=== PATIENT | female | born 1955 ===

== ENCOUNTER 2021-10-16 12:55 | Inpatient (IN) | payer BC ==
[2021-10-16] MEDS ORDERED: Lactated Ringers 1,000 ML IV ONE (13:46)
[2021-10-16] MEDS ORDERED: Morphine 4 MG/ML VIAL IVPUSH ONE (13:46)
[2021-10-16 15:24] LABS: BLOOD UREA NITROGEN,BUN 25 mg/dL (7.0-18.0); CARBON DIOXIDE,CO2 25.7 mmol/L (21.0-32.0); CHLORIDE,CL 103 mmol/L (98-107); GLUCOSE RANDOM 106 mg/dL (74-106); POTASSIUM,K 4.9 mmol/L (3.5-5.1); SODIUM,NA 138 mmol/L (136-145)
[2021-10-16] MEDS ORDERED: Iopamidol 755 MG/ML 500 ML Multipack Bottle IVPUSH STA (16:09)
--- NOTE | 2021-10-16 16:53 | CT ---
INDICATION: Diarrhea. Blood in the stool. Evaluate for diverticulitis. COMPARISON: None available TECHNIQUE: CT examination of the abdomen and pelvis was performed with the uneventful intravenous administration of 100 cc of Isovue 370 while 3 mm thick axial sections were obtained from the lung bases through the pubic symphysis. Oral contrast was not administered. Please note that all CT scans at this facility use dose modulation, iterative reconstruction, and/or weight-based dosing when appropriate to reduce radiation dose to as low as reasonably achievable. FINDINGS: In the abdomen, the liver, spleen, pancreas, and adrenals are normal in appearance. Parapelvic cysts are seen in both kidneys, larger and more numerous on the left than the right. Cortical cysts are also seen in both kidneys, the largest cyst in the upper pole of the left kidney measuring 4.5 centimeters in diameter. There is also mild nonobstructive left nephrolithiasis with 3 calculi present in the left kidney. The largest calculus is in the lower interpolar region measuring 6 millimeters in diameter. There is no sign of nephrolithiasis on the right. There is moderate cholelithiasis, with numerous low-density calculi in the superior gallbladder fundus. There is no sign of gallbladder wall thickening or pericholecystic fluid. The abdominal aorta is normal in caliber with no sign of dilatation. There is no sign of retroperitoneal mass or adenopathy. There is a small hiatal hernia. The rest of the stomach, loops of small bowel, and colon in the abdomen are otherwise normal in appearance. In the pelvis, the appendix is normal in appearance with no sign of inflammatory process. There is severe sigmoid diverticulosis without evidence of diverticulitis. There is mild thickening of the mucosa of the sigmoid colon suggesting nonspecific colitis. The loops of small bowel n the pelvis are normal in appearance. The uterus and adnexal regions are normal in appearance. The urinary bladder is normal in appearance. There is no sign of pelvic or inguinal mass or adenopathy. There is no sign of free air or free fluid in the abdomen or pelvis. There are bilateral, confluent, moderately dense and moderately sized peripheral infiltrates in the posterior lower lobes bilaterally, slightly more prominent on the left, typical of moderate COVID-19 pneumonia. A calcified granuloma is also seen in the posterior right lung base. The osseous structures are normal in appearance for the patient`s age. IMPRESSION: CT of the pelvis shows thickening of the wall of the sigmoid colon suggesting nonspecific colitis. While there is severe diverticulosis of the sigmoid colon, no inflammatory process is seen around the colon to suggest diverticulitis. No sign of any diverticular abscess. CT of the abdomen shows mild nonobstructive left nephrolithiasis. Parapelvic cysts and cortical cysts in both kidneys, larger and more numerous on the left than the right. For moderate cholelithiasis with no sign of acute cholecystitis. Findings of moderate COVID-19 pneumonia. Please note that all CT scans at this facility use dose modulation, iterative reconstruction, and/or weight-based dosing when appropriate to reduce radiation dose to as low as reasonably achievable. Dictated by Farhad Barrett MD @ 10/16/2021 4:51:49 PM (Electronically Signed)
--- NOTE | 2021-10-16 17:33 | EDM.PDOC ---
ED HPI GENERAL MEDICAL PROBLEM - General Chief Complaint: General Stated Complaint: DIARRHEA Time Seen by Provider: 10/16/21 13:33 - History of Present Illness INITIAL COMMENTS - FREE TEXT/NARRATIVE: CHIEF COMPLAINT(S): Diarrhea and abdominal pain HISTORY OF PRESENT ILLNESS: This is a 66-year-old woman without any significant past medical history who was recently diagnosed with COVID-19 who comes to the emergency department with a chief complaint of diarrhea and abdominal pain. The patient states that she has been experiencing a cough which is nonproductive however she is in the emergency department because she is having diarrhea which is explosive. She states that she is concerned that she may be having an episode of diverticulitis. She states that her symptoms started at the the time she was diagnosed with COVID-19 which was reported as October 10, 2021. She denies any vomiting or nausea but states that she does not feel like she is able to keep enough hydration. In addition she has been experiencing some dysuria and a strong odor. She describes her pain as achy and rates it 4-5 out of 10 without any radiation. There are no aggravating or relieving factors. Symptom onset was 10/10/2021. She states that she did not get the vaccine and has not received the monoclonal antibody. She denies any chest pain, shortness of breath . REVIEW OF SYSTEMS: Constitutional: Denies fever, chills. Eyes: Denies eye pain Ears, Nose, Mouth, & Throat: Denies earache Cardiovascular: Denies chest pain Respiratory: Denies shortness of breath Gastrointestinal: Positive for abdominal pain and diarrhea. Denies nausea, vomiting hematochezia, melena, hematemesis, bilious emesis Genitourinary: Positive for dysuria and malodorous urine. Denies hematuria skin:Denies a rash MSK: Denies joint pain Neurological: Denies blurred vision Psychiatric: Denies depression PAST MEDICAL HISTORY: As per history of present illness and as reviewed below otherwise noncontributory. SURGICAL HISTORY: As per history of present illness and as reviewed below otherwise noncontributory. SOCIAL HISTORY: As per history of present illness and as reviewed below otherwise noncontributory. FAMILY HISTORY: As per history of present illness and as reviewed below otherwise noncontributory. EXAMINATION OF ORGAN SYSTEMS/BODY AREAS: Constitutional: Blood pressure is 131/79, heart rate 86, respiratory rate 20 with an oxygen saturation of 87% on room air. Temperature 36.0 General: Middle-aged woman who does not appear to be in acute distress. Psychiatric: Appropriate mood and affect. Eyes: No scleral icterus or conjunctival erythema ENMT: Moist mucous membranes. No pharyngeal erythema Cardiovascular: Regular, rate, and rhythm. No gallops, murmurs, or rubs. Bilateral upper extremity pulses symmetric and intact. No peripheral edema. No JVD. Respiratory: Lungs clear to auscultation bilaterally. No wheezes, rales, or rhonchi. The patient is mildly tachypneic but is speaking in full sentences Gastrointestinal: Soft, nondistended, no rebound or guarding. Tenderness to palpation in the lower quadrants bilaterally and suprapubically. Normoactive bowel sounds Genitourinary: Mild suprapubic tenderness. No CVA tenderness Musculoskeletal: Normal range of motion. Skin: No lesions or abrasions. Neurological: Alert, GCS 15 MEDICAL DECISION MAKING AND COURSE IN THE ED WITH INTERPRETATION/REVIEW OF DIAGNOSTIC STUDIES: This is a 66-year-old woman with a recent diagnosis of COVID-19 who comes to the emergency department with diarrhea and abdominal pain who is hypoxic on room air. At this time cardiac monitoring did reveal sinus rhythm and pulse oximetry with good waveform on 2 L nasal cannula was 92 to 96%. At this time we did obtain a screening EKG which is unremarkable. Given the patient's abdominal pain obtain a CT abdomen pelvis for further evaluation. Will obtain CBC, CMP and a urinalysis given the dysuria. We will provide the patient with 1 L of lactated Ringer's bolus, 4 mg of morphine for pain and 4 mg of Zofran for nausea. Laboratory: CBC is unremarkable. INR is normal. CMP reveals acute kidney injury with a BUN of 25 and a creatinine of 1.2. AST is mildly elevated at 70. Urinalysis is negative for any infection and did reveal microscopic hematuria. DDx: Cystitis, diverticulitis, colitis The radiological images were viewed by myself along with reading the report from the radiologist. CT abdomen pelvis with contrast reveals evidence of moderate COVID-19 pneumonia, colitis without any evidence of diverticulitis. Otherwise no acute abdominal process. On reevaluation the patient was continuing to require supplemental oxygenation. At this time I did discuss admission with the patient. She was amenable to this plan. I contacted Dr. Hendricks who accepted the patient for admission. We will start the patient on remdesivir and dexamethasone. DISPOSITION: The patient was admitted to the hospital in stable condition CONDITION: Fair PROCEDURES: Cardiac monitoring interpretation, pulse oximetry interpretation FINAL IMPRESSION(S)/DIAGNOSES: 1. Acute hypoxic respiratory failure secondary to COVID-19 pneumonia 2. Acute diarrhea secondary to colitis 3. Acute kidney injury likely secondary to #2 Aj Duke M.D. - Related Data Allergies Allergy/AdvReac Type Severity Reaction Status Date / Time aspirin Allergy Hives Verified 10/16/21 13:33 codeine Allergy Vomiting Verified 10/16/21 13:33 Penicillins Allergy unknown Verified 10/16/21 13:33 Home Meds: Home Meds . [No Known Home Meds] 10/16/21 [History] Past Medical History - Past Health History Medical/Surgical History: Denies Medical/Surgical History DIETICIAN History: Reports: Other (See Below) Other DIETICIAN History: Tube tied Musculoskeletal History: Reports: None - Infectious Disease History Infectious Disease History: Reports: Chicken Pox, Measles, Mumps - Past Surgical History Other Respiratory Surgeries/Procedures: Diagnose with covid 10/02/21 Social & Family History - Family History Family Medical History: No Pertinent Family History - Caffeine Use Caffeine Use: Reports: Coffee, Soda - Recreational Drug Use Recreational Drug Use: No ED ROS GENERAL - Review of Systems Review Of Systems: See Below ED EXAM, GENERAL - Physical Exam Exam: See Below Course - Vital Signs Last Recorded V/S: Last Vital Signs Temp 36.0 C L 10/16/21 13:19 Pulse 92 10/16/21 19:12 Resp 18 10/16/21 16:43 BP 124/79 10/16/21 19:12 Pulse Ox 92 L 10/16/21 19:12 - Orders/Labs/Meds Labs: Laboratory Tests 10/16/21 10/16/21 10/16/21 Range/Units 14:00 14:48 14:48 WBC 6.54 (4.0-11.0) K/uL RBC 5.50 (4.30-5.90) M/uL Hgb 16.7 H (12.0-16.0) g/dL Hct 48.6 H (36.0-46.0) % MCV 88.4 (80.0-98.0) fL MCH 30.4 (27.0-32.0) pg MCHC 34.4 (31.0-37.0) g/dL RDW Std Deviation 45.1 (28.0-62.0) fl RDW Coeff of Isadora 14 (11.0-15.0) % Plt Count 185 (150-400) K/uL MPV 12.10 H (7.40-12.00) fL Neut % (Auto) 80.3 H (48.0-80.0) % Lymph % (Auto) 7.8 L (16.0-40.0) % Lares % (Auto) 11.9 (0.0-15.0) % Eos % (Auto) 0.0 (0.0-7.0) % Baso % (Auto) 0.0 (0.0-1.5) % Neut # (Auto) 5.3 (1.4-5.7) K/uL Lymph # (Auto) 0.5 L (0.6-2.4) K/uL [place] # (Auto) 0.8 (0.0-0.8) K/uL Eos # (Auto) 0.0 (0.0-0.7) K/uL Baso # (Auto) 0.0 (0.0-0.1) K/uL Nucleated RBC % 0.0 /100WBC Nucleated RBCs # 0 K/uL INR 1.08 Sodium 138 (136-145) mmol/L Potassium 4.9 (3.5-5.1) mmol/L Chloride 103 (98-107) mmol/L Carbon Dioxide 25.7 (21.0-32.0) mmol/L BUN 25 H (7.0-18.0) mg/dL Creatinine 1.2 H (0.6-1.0) mg/dL Est Cr Clr Drug Dosing TNP Estimated GFR (MDRD) 45.1 ml/min Glucose 106 (74-106) mg/dL Calcium 8.5 (8.5-10.1) mg/dL Total Bilirubin 0.5 (0.2-1.0) mg/dL AST 70 H (15-37) IU/L ALT 58 (14-63) IU/L Alkaline Phosphatase 49 (46-116) U/L Total Protein 6.9 (6.4-8.2) g/dL Albumin 2.6 L (3.4-5.0) g/dL Globulin 4.3 H (2.6-4.0) g/dL Albumin/Globulin Ratio 0.6 L (0.9-1.6) Urine Color Urine Appearance Urine pH (5.0-8.0) Ur Specific [place] (1.001-1.035) Urine Protein (NEGATIVE) mg/dL Urine Glucose (UA) (NEGATIVE) mg/dL Urine Ketones (NEGATIVE) mg/dL Urine Occult Blood (NEGATIVE) Urine Nitrite (NEGATIVE) Urine Bilirubin (NEGATIVE) Urine Urobilinogen (<2.0) EU/dL Ur Leukocyte Esterase (NEGATIVE) U Hyaline Cast (Auto) (0-2/LPF) Urine RBC (0-2/HPF) Urine WBC (0-5/HPF) Ur Epithelial Cells (NONE-FEW) Urine Bacteria (NEGATIVE) Fine Granular Casts (NEGATIVE) Coarse Granular Casts (NEGATIVE) 10/16/ Range/Units 15:15 WBC (4.0-11.0) K/uL RBC (4.30-5.90) M/uL Hgb (12.0-16.0) g/dL Hct (36.0-46.0) % MCV (80.0-98.0) fL MCH (27.0-32.0) pg MCHC (31.0-37.0) g/dL RDW Std Deviation (28.0-62.0) fl RDW Coeff of Isadora (11.0-15.0) % Plt Count (150-400) K/uL MPV (7.40-12.00) fL Neut % (Auto) (48.0-80.0) % Lymph % (Auto) (16.0-40.0) % Lares % (Auto) (0.0-15.0) % Eos % (Auto) (0.0-7.0) % Baso % (Auto) (0.0-1.5) % Neut # (Auto) (1.4-5.7) K/uL Lymph # (Auto) (0.6-2.4) K/uL [place] # (Auto) (0.0-0.8) K/uL Eos # (Auto) (0.0-0.7) K/uL Baso # (Auto) (0.0-0.1) K/uL Nucleated RBC % /100WBC Nucleated RBCs # K/uL INR Sodium (136-145) mmol/L Potassium (3.5-5.1) mmol/L Chloride (98-107) mmol/L Carbon Dioxide (21.0-32.0) mmol/L BUN (7.0-18.0) mg/dL Creatinine (0.6-1.0) mg/dL Est Cr Clr Drug Dosing Estimated GFR (MDRD) ml/min Glucose (74-106) mg/dL Calcium (8.5-10.1) mg/dL Total Bilirubin (0.2-1.0) mg/dL AST (15-37) IU/L ALT (14-63) IU/L Alkaline Phosphatase (46-116) U/L Total Protein (6.4-8.2) g/dL Albumin (3.4-5.0) g/dL Globulin (2.6-4.0) g/dL Albumin/Globulin Ratio (0.9-1.6) Urine Color YELLOW Urine Appearance SLT CLOUDY Urine pH 6.0 (5.0-8.0) Ur Specific [place] 1.025 (1.001-1.035) Urine Protein 100 H (NEGATIVE) mg/dL Urine Glucose (UA) NEGATIVE (NEGATIVE) mg/dL Urine Ketones NEGATIVE (NEGATIVE) mg/dL Urine Occult Blood SMALL H (NEGATIVE) Urine Nitrite NEGATIVE (NEGATIVE) Urine Bilirubin NEGATIVE (NEGATIVE) Urine Urobilinogen 0.2 (<2.0) EU/dL Ur Leukocyte Esterase NEGATIVE (NEGATIVE) U Hyaline Cast (Auto) 2-5 (0-2/LPF) Urine RBC 1-4 (0-2/HPF) Urine WBC 0-1 (0-5/HPF) Ur Epithelial Cells FEW (NONE-FEW) Urine Bacteria 2+ H (NEGATIVE) Fine Granular Casts 3-5 (NEGATIVE) Coarse Granular Casts 1-3 (NEGATIVE) Meds: Medications Discontinued Medications Generic Name Dose Route Start Last Admin Trade Name Freq PRN Reason Stop Dose Admin Dexamethasone 6 mg 10/16/21 17:52 10/16/21 18:22 Dexamethasone 4 Mg Tab PO 10/16/21 17:53 6 mg ONETIME ONE Administration Lactated Ringer's 1,000 mls @ 999 mls/hr 10/16/21 13:46 10/16/21 14:11 Ringers, Lactated IV 10/16/21 14:46 999 mls/hr .BOLUS ONE Administration Remdesivir 200 mg/ Sodium 250 mls @ 250 mls/hr 10/16/21 17:53 10/16/21 18:28 Chloride IV 10/16/21 17:54 250 mls/hr ONETIME ONE Administration Iopamidol 100 ml 10/16/21 16:09 10/16/21 16:10 Iopamidol 755 Mg/Ml 500 Ml Multipack Bottle IVPUSH 10/16/21 16:10 100 ml ONETIME STA Administration Morphine Sulfate 4 mg 10/16/21 13:46 10/16/21 14:12 Morphine 4 Mg/Ml Vial IVPUSH 10/16/21 13:47 4 mg ONETIME ONE Administration Ondansetron HCl 4 mg 10/16/21 18:27 10/16/21 18:30 Ondansetron 4 Mg/2 Ml Sdv IVPUSH 10/16/21 18:28 4 mg ONETIME ONE Administration Departure - Departure Time of Disposition: 17:32 Disposition: Admitted As Inpatient 67 Condition: Fair Clinical Impression: COVID-19, Diarrhea - Discharge Information *PRESCRIPTION DRUG MONITORING PROGRAM REVIEWED*: No *COPY OF PRESCRIPTION DRUG MONITORING REPORT IN PATIENT RICHARD: No Sepsis Event Note (ED) - Evaluation Sepsis Screening Result: No Definite Risk - Focused Exam Vital Signs: Vital Signs Temp Pulse Resp BP Pulse Ox 10/16/21 17:01 90 137/71 96 10/16/21 16:43 94 18 137/71 96 10/16/21 15:21 95 18 128/77 92 L 10/16/21 13:19 36.0 C L 86 20 131/79 87 L
[2021-10-16] MEDS ORDERED: Dexamethasone 4 MG Tab PO ONE (17:52)
[2021-10-16] MEDS ORDERED: REMDESIVIR 200 MG in Sodium Chloride 0.9% 250 ML IV ONE (17:53)
[2021-10-16] MEDS ORDERED: Ondansetron 4 MG/2 ML SDV IVPUSH ONE (18:27)
[2021-10-16] MEDS ORDERED: methylPREDNISolone Sodium Succinate 40 MG/1 ML SDV IVPUSH SCH (21:00)
--- NOTE | 2021-10-17 08:19 | PCM.HP.2 ---
H&P History of Present Illness - General Date of Service: 10/17/21 Admit Problem/Dx: Admission Diagnosis/Problem Admission Diagnosis/Problem Hypoxia - History of Present Illness Initial Comments - Free Text/Narative: 66-year-old female presents to the ER with diarrhea and abdominal pain. Patient was diagnosed with COVID-19 on 10/10/2021. Patient complains of cough nonproductive. Now has explosive diarrhea. Patient does endorse a history of diverticulitis. Denies bloody stools or BRBPR. Patient endorses myalgias. No nausea or vomiting. Patient complains of dysuria. Patient is not vaccinated. ER course: Patient is hypoxic and requires 3 L nasal cannula, saturating at 93%. EKG is normal sinus rhythm. CBC unremarkable. CMP reveals CHONG, BUN 25, CR 1.2. AST 70. Urinalysis negative. CT abdomen pelvis reveals moderate COVID-19 pneumonia, colitis, no evidence of diverticulitis. Patient admitted for COVID-19 pneumonia and colitis. - Related Data Allergies/Adverse Reactions: Allergies Allergy/AdvReac Type Severity Reaction Status Date / Time aspirin Allergy Hives Verified 10/16/21 13:33 codeine Allergy Vomiting Verified 10/16/21 13:33 Penicillins Allergy unknown Verified 10/16/21 13:33 Home Medications: Home Meds . 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 (See Below) Other OB/BYN History: Tube tied Musculoskeletal History: Reports: None - Infectious Disease History Infectious Disease History: Reports: Chicken Pox, Measles, Mumps - Past Surgical History Other Respiratory Surgeries/Procedures: Diagnose with covid 10/02/21 Social & Family History - Family History Family Medical History: No Pertinent Family History - Tobacco Use Tobacco Use Status *Q: Never Tobacco User Second Hand Smoke Exposure: No - Caffeine Use Caffeine Use: Reports: Coffee, Soda - Alcohol Use Days Per Week of Alcohol Use: 7 Number of Drinks Per Day: 1 Total Drinks Per Week: 7 - Recreational Drug Use Recreational Drug Use: No H&P Review of Systems - Review of Systems: Review Of Systems: See Below General: Reports: Fatigue. Denies: Fever Pulmonary: Reports: Shortness of Breath, Cough. Denies: Wheezing, Sputum Cardiovascular: Denies: Chest Pain, Palpitations Gastrointestinal: Reports: Abdominal Pain, Diarrhea. Denies: Black Stool, Bloody Stool Genitourinary: Reports: Dysuria Neurological: Denies: Confusion, Dizziness, Numbness, Paresthesia Exam - Exam Exam: See Below - Vital Signs Vital Signs: Last Vital Signs Temp 96.0 F L 10/17/21 04:00 Pulse 76 10/17/21 04:00 Resp 16 10/17/21 04:00 BP 106/73 10/17/21 04:00 Pulse Ox 97 10/17/21 04:00 Weight: 217 lb 2.485 oz - Exam Quality Assessment: Supplemental Oxygen General: Alert, Oriented, Cooperative HEENT: Conjunctiva Clear, EACs Clear Neck: Supple, Trachea Midline Lungs: Decreased Breath Sounds Cardiovascular: Regular Rate, Regular Rhythm GI/Abdominal Exam: Soft, Other (Mid abdominal and suprapubic tenderness. Negative rebound.) Back Exam: Normal Inspection Extremities: Normal Inspection Peripheral Pulses: 2+: Dorsalis Pedis (L), Dorsalis Pedis (R) Neuro Extensive - Mental Status: Alert, Oriented x3 - Patient Data Lab Results Last 24 hrs: Laboratory Results - last 24 hr 10/16/21 10/16/21 10/16/21 Range/Units 14:00 14:48 14:48 WBC 6.54 (4.0-11.0) K/uL RBC 5.50 (4.30-5.90) M/uL Hgb 16.7 H (12.0-16.0) g/dL Hct 48.6 H (36.0-46.0) % MCV 88.4 (80.0-98.0) fL MCH 30.4 (27.0-32.0) pg MCHC 34.4 (31.0-37.0) g/dL RDW Std Deviation 45.1 (28.0-62.0) fl RDW Coeff of Isadora 14 (11.0-15.0) % Plt Count 185 (150-400) K/uL MPV 12.10 H (7.40-12.00) fL Neut % (Auto) 80.3 H (48.0-80.0) % Lymph % (Auto) 7.8 L (16.0-40.0) % [place] % (Auto) 11.9 (0.0-15.0) % Eos % (Auto) 0.0 (0.0-7.0) % Baso % (Auto) 0.0 (0.0-1.5) % Neut # (Auto) 5.3 (1.4-5.7) K/uL Lymph # (Auto) 0.5 L (0.6-2.4) K/uL [place] # (Auto) 0.8 (0.0-0.8) K/uL Eos # (Auto) 0.0 (0.0-0.7) K/uL Baso # (Auto) 0.0 (0.0-0.1) K/uL Nucleated RBC % 0.0 /100WBC Nucleated RBCs # 0 K/uL INR 1.08 Sodium 138 (136-145) mmol/L Potassium 4.9 (3.5-5.1) mmol/L Chloride 103 (98-107) mmol/L Carbon Dioxide 25.7 (21.0-32.0) mmol/L BUN 25 H (7.0-18.0) mg/dL Creatinine 1.2 H (0.6-1.0) mg/dL Est Cr Clr Drug Dosing TNP Estimated GFR (MDRD) 45.1 ml/min Glucose 106 (74-106) mg/dL Calcium 8.5 (8.5-10.1) mg/dL Total Bilirubin 0.5 (0.2-1.0) mg/dL AST 70 H (15-37) IU/L ALT 58 (14-63) IU/L Alkaline Phosphatase 49 (46-116) U/L Total Protein 6.9 (6.4-8.2) g/dL Albumin 2.6 L (3.4-5.0) g/dL Globulin 4.3 H (2.6-4.0) g/dL Albumin/Globulin Ratio 0.6 L (0.9-1.6) Urine Color Urine Appearance Urine pH (5.0-8.0) Ur Specific [place] (1.001-1.035) Urine Protein (NEGATIVE) mg/dL Urine Glucose (UA) (NEGATIVE) mg/dL Urine Ketones (NEGATIVE) mg/dL Urine Occult Blood (NEGATIVE) Urine Nitrite (NEGATIVE) Urine Bilirubin (NEGATIVE) Urine Urobilinogen (<2.0) EU/dL Ur Leukocyte Esterase (NEGATIVE) U Hyaline Cast (Auto) (0-2/LPF) Urine RBC (0-2/HPF) Urine WBC (0-5/HPF) Ur Epithelial Cells (NONE-FEW) Urine Bacteria (NEGATIVE) Fine Granular Casts (NEGATIVE) Coarse Granular Casts (NEGATIVE) 10/16/21 Range/Units 15:15 WBC (4.0-11.0) K/uL RBC (4.30-5.90) M/uL Hgb (12.0-16.0) g/dL Hct (36.0-46.0) % MCV (80.0-98.0) fL MCH (27.0-32.0) pg MCHC (31.0-37.0) g/dL RDW Std Deviation (28.0-62.0) fl RDW Coeff of Isadora (11.0-15.0) % Plt Count (150-400) K/uL MPV (7.40-12.00) fL Neut % (Auto) (48.0-80.0) % Lymph % (Auto) (16.0-40.0) % [place] % (Auto) (0.0-15.0) % Eos % (Auto) (0.0-7.0) % Baso % (Auto) (0.0-1.5) % Neut # (Auto) (1.4-5.7) K/uL Lymph # (Auto) (0.6-2.4) K/uL [place] # (Auto) (0.0-0.8) K/uL Eos # (Auto) (0.0-0.7) K/uL Baso # (Auto) (0.0-0.1) K/uL Nucleated RBC % /100WBC Nucleated RBCs # K/uL INR Sodium (136-145) mmol/L Potassium (3.5-5.1) mmol/L Chloride (98-107) mmol/L Carbon Dioxide (21.0-32.0) mmol/L BUN (7.0-18.0) mg/dL Creatinine (0.6-1.0) mg/dL Est Cr Clr Drug Dosing Estimated GFR (MDRD) ml/min Glucose (74-106) mg/dL Calcium (8.5-10.1) mg/dL Total Bilirubin (0.2-1.0) mg/dL AST (15-37) IU/L ALT (14-63) IU/L Alkaline Phosphatase (46-116) U/L Total Protein (6.4-8.2) g/dL Albumin (3.4-5.0) g/dL Globulin (2.6-4.0) g/dL Albumin/Globulin Ratio (0.9-1.6) Urine Color YELLOW Urine Appearance SLT CLOUDY Urine pH 6.0 (5.0-8.0) Ur Specific [place] 1.025 (1.001-1.035) Urine Protein 100 H (NEGATIVE) mg/dL Urine Glucose (UA) NEGATIVE (NEGATIVE) mg/dL Urine Ketones NEGATIVE (NEGATIVE) mg/dL Urine Occult Blood SMALL H (NEGATIVE) Urine Nitrite NEGATIVE (NEGATIVE) Urine Bilirubin NEGATIVE (NEGATIVE) Urine Urobilinogen 0.2 (<2.0) EU/dL Ur Leukocyte Esterase NEGATIVE (NEGATIVE) U Hyaline Cast (Auto) 2-5 (0-2/LPF) Urine RBC 1-4 (0-2/HPF) Urine WBC 0-1 (0-5/HPF) Ur Epithelial Cells FEW (NONE-FEW) Urine Bacteria 2+ H (NEGATIVE) Fine Granular Casts 3-5 (NEGATIVE) Coarse Granular Casts 1-3 (NEGATIVE) Result Diagrams: 10/16/21 14:00 10/16/21 14:48 Sepsis Event Note - Evaluation Sepsis Screening Result: No Definite Risk - Focused Exam Vital Signs: Vital Signs Temp Pulse Resp BP BP Pulse Ox Pulse Ox 10/17/21 04:00 96.0 F L 76 16 106/73 97 10/17/21 00:55 96.2 F L 86 16 121/78 97 10/16/21 20:55 93 L Problem List Initiated/Reviewed/Updated: Yes Orders Last 24hrs: Active Orders 24 hr Category Date Time Status Admission Status [Patient Status] [ADT] Stat ADT 10/16/21 17:55 Active Antiembolic Devices [RC] PER UNIT ROUTINE Care 10/16/21 21:00 Active Oxygen Therapy [RC] PRN Care 10/16/21 20:55 Active Up ad Phyllis [RC] ASDIRECTED Care 10/16/21 20:55 Active VTE/DVT Education [RC] PER UNIT ROUTINE Care 10/16/21 20:55 Active Vital Signs [RC] Q4H Care 10/16/21 20:55 Active C DIFFICILE AG/TOXIN W/REFLEX [RM] Routine Lab 10/16/21 21:02 Ordered methylPREDNISolone Sod Succ [Solu-MEDROL] Med 10/16/21 21:00 Active 80 mg IVPUSH Q24H Sequential Compression Device [OM.PC] Per Unit Routine Oth 10/16/21 21:00 Ordered Resuscitation Status Routine Resus Stat 10/16/21 20:55 Ordered Medication Orders Methylprednisolone Sodium Succinate (Methylprednisolone Sodium Succinate 40 Mg/1 Ml Sdv) 80 mg IVPUSH Q24H JUDI Last Admin: 10/16/21 22:05 Dose: 80 mg Documented by: HERRERA Assessment/Plan Comment:: Covid pneumonia: Oxygen, wean as tolerated. Remdesivir. Colitis: Solu-Medrol 80 mg daily. C. difficile antigen testing.
[2021-10-17] MEDS ORDERED: Ondansetron 4 MG/2 ML SDV IVPUSH PRN (08:22)
[2021-10-17] MEDS: Vancomycin 125 MG Cap PO SCH ×3 (13:24→23:36)
--- NOTE | 2021-10-17 16:33 | PCM.PN ---
- General Info Date of Service: 10/17/21 Subjective Update: Pt's c diff antigen came back positive. She denies having any loose stools today. - Patient Data Vitals - Most Recent: Last Vital Signs Temp 95.8 F L 10/17/21 12:00 Pulse 79 10/17/21 12:00 Resp 16 10/17/21 12:00 BP 110/78 10/17/21 12:00 Pulse Ox 90 L 10/17/21 12:00 Weight - Most Recent: 217 lb 2.485 oz I&O - Last 24 Hours: Intake & Output 10/17/21 10/17/21 10/17/21 06:59 14:59 22:59 Intake Total 200 Output Total 800 Balance -600 Lab Results Last 24 Hours: Laboratory Results - last 24 hr 10/16/21 Range/Units 15:15 U Hyaline Cast (Auto) 2-5 (0-2/LPF) Urine RBC 1-4 (0-2/HPF) Urine WBC 0-1 (0-5/HPF) Ur Epithelial Cells FEW (NONE-FEW) Urine Bacteria 2+ H (NEGATIVE) Fine Granular Casts 3-5 (NEGATIVE) Coarse Granular Casts 1-3 (NEGATIVE) Deniz Results Last 24 Hours: Microbiology 10/17/21 10:25 C. difficile Antigen & Toxins A,B - Final Stool / Feces - Stool, Liquid Med Orders - Current: Current Medications Remdesivir 100 mg/ Sodium (Chloride) 100 mls @ 100 mls/hr IV Q24H [facility]I Stop: 10/20/21 18:59 Ondansetron HCl (Ondansetron 4 Mg/2 Ml Sdv) 4 mg IVPUSH Q6H PRN PRN Reason: Nausea/Vomiting Vancomycin HCl (Vancomycin 125 Mg Cap) 125 mg PO QID JUDI Last Admin: 10/17/21 13:24 Dose: 125 mg Documented by: Discontinued Medications Dexamethasone (Dexamethasone 4 Mg Tab) 6 mg PO ONETIME ONE Stop: 10/16/21 17:53 Last Admin: 10/16/21 18:22 Dose: 6 mg Documented by: Lactated Ringer's (Ringers, Lactated) 1,000 mls @ 999 mls/hr IV .BOLUS ONE Stop: 10/16/21 14:46 Last Admin: 10/16/21 14:11 Dose: 999 mls/hr Documented by: Remdesivir 200 mg/ Sodium (Chloride) 250 mls @ 250 mls/hr IV ONETIME ONE Stop: 10/16/21 17:54 Last Admin: 10/16/21 18:28 Dose: 250 mls/hr Documented by: Iopamidol (Iopamidol 755 Mg/Ml 500 Ml Multipack Bottle) 100 ml IVPUSH ONETIME STA Stop: 10/16/21 16:10 Last Admin: 10/16/21 16:10 Dose: 100 ml Documented by: Methylprednisolone Sodium Succinate (Methylprednisolone Sodium Succinate 40 Mg/1 Ml Sdv) 80 mg IVPUSH Q24H JUDI Last Admin: 10/16/21 22:05 Dose: 80 mg Documented by: Morphine Sulfate (Morphine 4 Mg/Ml Vial) 4 mg IVPUSH ONETIME ONE Stop: 10/16/21 13:47 Last Admin: 10/16/21 14:12 Dose: 4 mg Documented by: Ondansetron HCl (Ondansetron 4 Mg/2 Ml Sdv) 4 mg IVPUSH ONETIME ONE Stop: 10/16/21 18:28 Last Admin: 10/16/21 18:30 Dose: 4 mg Documented by: - Exam Physical Findings Comments:: General: Well developed middle aged female. In no distress CVS: S1S2 appreciated lungs: clear bilaterally pa: soft, non tender. bowel sounds present ext: no clubbing, cyanosis or edema neuro: gait is stable. Sensation is intact. Strength is symmetrical and equal bi laterally psych: stable mood and affect. - Patient Data Lab Results Last 24 hrs: Laboratory Results - last 24 hr 10/16/21 Range/Units 15:15 U Hyaline Cast (Auto) 2-5 (0-2/LPF) Urine RBC 1-4 (0-2/HPF) Urine WBC 0-1 (0-5/HPF) Ur Epithelial Cells FEW (NONE-FEW) Urine Bacteria 2+ H (NEGATIVE) Fine Granular Casts 3-5 (NEGATIVE) Coarse Granular Casts 1-3 (NEGATIVE) Result Diagrams: 10/16/21 14:00 10/16/21 14:48 Deniz Results Last 24 hrs: Microbiology 10/17/21 10:25 C. difficile Antigen & Toxins A,B - Final Stool / Feces - Stool, Liquid Sepsis Event Note - Evaluation Sepsis Screening Result: No Definite Risk - Focused Exam Vital Signs: Vital Signs Temp Pulse Resp BP Pulse Ox 10/17/21 12:00 95.8 F L 79 16 110/78 90 L 10/17/21 08:00 96.3 F L 78 16 119/69 94 L - Problem List & Annotations (1) C. difficile colitis SNOMED Code(s): 491085945 Code(s): A04.72 - ENTEROCOLITIS D/T CLOSTRIDIUM DIFFICILE, NOT SPCF RECUR Status: Acute Current Visit: Yes (2) COVID-19 virus infection SNOMED Code(s): 945081910 Code(s): U07.1 - COVID-19 Status: Acute Current Visit: Yes (3) Hypoxemia SNOMED Code(s): 033871410 Code(s): R09.02 - HYPOXEMIA Status: Acute Current Visit: Yes (4) Obesity SNOMED Code(s): 854211019, 810703174 Code(s): E66.9 - OBESITY, UNSPECIFIED Status: Acute Current Visit: Yes (5) Full code status SNOMED Code(s): 015165776 Code(s): Z78.9 - OTHER SPECIFIED HEALTH STATUS Status: Acute Current Visit: Yes (6) DVT prophylaxis SNOMED Code(s): 985025332, 357510391 Code(s): Z29.9 - ENCOUNTER FOR PROPHYLACTIC MEASURES, UNSPECIFIED Status: Acute Current Visit: Yes - Problem List Review Problem List Initiated/Reviewed/Updated: Yes - My Orders Last 24 Hours: My Active Orders 10/16/21 20:55 Oxygen Therapy [RC] PRN Up ad Phyllis [RC] ASDIRECTED VTE/DVT Education [RC] PER UNIT ROUTINE Vital Signs [RC] Q4H Resuscitation Status Routine 10/16/21 21:00 Antiembolic Devices [RC] PER UNIT ROUTINE Sequential Compression Device [OM.PC] Per Unit Routine 10/17/21 10:25 C DIFICILE TOXIN BY PCR CONF [MREF] Routine 10/17/21 12:00 Vancomycin [Vancocin 125 MG Capsule] 125 mg PO QID - Assessment Assessment:: C diff colitis Will start pt on oral vancomycin 125 mg QID x 14 days C. diff contact precautions Recent Covid 19 infection Pt does not have active disease at this time Hypoxemia likely residual lung damage from the recent viral pneumonitis oxygen supplementation continue with pulmonary rehabilitation Full code status DVT prophylaxis SQ lovenox. Morbid obesity life style modifications.
[2021-10-17] MEDS: Enoxaparin 40 MG/0.4 ML Syringe SUBCUT SCH (18:21)
[2021-10-17] MEDS: REMDESIVIR 100 MG in Sodium Chloride 0.9% 100 ML IV SCH (18:22)
[2021-10-18] MEDS: Vancomycin 125 MG Cap PO SCH ×4 (05:48→23:41)
[2021-10-18 07:21] LABS: BLOOD UREA NITROGEN,BUN 33 mg/dL (7.0-18.0); CARBON DIOXIDE,CO2 24.9 mmol/L (21.0-32.0); CHLORIDE,CL 106 mmol/L (98-107); GLUCOSE RANDOM 148 mg/dL (74-106); SODIUM,NA 141 mmol/L (136-145)
[2021-10-18] MEDS: guaiFENesin/Dextromethorphan 100-10 MG/5 ML Soln 10 ML Cup PO PRN ×2 (09:09→17:02)
[2021-10-18] MEDS ORDERED: Sodium Chloride 0.9% 500 ML IV SCH ×2 (11:15→12:30)
[2021-10-18] MEDS ORDERED: Acetaminophen 325 MG Tab PO PRN (11:20)
[2021-10-18] MEDS: Benzonatate 100 MG Cap PO PRN ×2 (12:00→23:41)
--- NOTE | 2021-10-18 13:56 | PCM.PN ---
<Delmis Goode - Last Filed: 10/18/21 13:53> - General Info Date of Service: 10/18/21 Admission Dx/Problem (Free Text): Admission Diagnosis/Problem Admission Diagnosis/Problem Hypoxia Subjective Update: Pt abd pain improved. On oral vancomycin for c diff positive ag. No loose stools today. Denies fever/chills. - Review of Systems General: Denies: Fever HEENT: Denies: Headaches Pulmonary: Reports: Shortness of Breath, Cough Cardiovascular: Reports: Dyspnea on Exertion. Denies: Chest Pain, Palpitations Gastrointestinal: Denies: Abdominal Pain, Constipation, Nausea, Vomiting Genitourinary: Denies: Dysuria Musculoskeletal: Denies: Leg Pain - Patient Data Vitals - Most Recent: Last Vital Signs Temp 96.3 F L 10/18/21 12:11 Pulse 83 10/18/21 12:11 Resp 16 10/18/21 12:11 BP 117/65 10/18/21 12:11 Pulse Ox 93 L 10/18/21 12:11 Weight - Most Recent: 217 lb 2.485 oz I&O - Last 24 Hours: Intake & Output 10/17/21 10/18/21 10/18/21 22:59 06:59 14:59 Intake Total 210 300 Output Total 650 Balance 210 -350 Lab Results Last 24 Hours: Laboratory Results - last 24 hr 10/18/21 10/18/21 Range/Units 06:00 06:00 WBC 7.70 (4.0-11.0) K/uL RBC 5.32 (4.30-5.90) M/uL Hgb 16.0 (12.0-16.0) g/dL Hct 47.2 H (36.0-46.0) % MCV 88.7 (80.0-98.0) fL MCH 30.1 (27.0-32.0) pg MCHC 33.9 (31.0-37.0) g/dL RDW Std Deviation 44.8 (28.0-62.0) fl RDW Coeff of Isadora 14 (11.0-15.0) % Plt Count 235 (150-400) K/uL MPV 11.80 (7.40-12.00) fL Nucleated RBC % 0.0 /100WBC Nucleated RBCs # 0 K/uL Sodium 141 (136-145) mmol/L Potassium 4.0 (3.5-5.1) mmol/L Chloride 106 (98-107) mmol/L Carbon Dioxide 24.9 (21.0-32.0) mmol/L BUN 33 H (7.0-18.0) mg/dL Creatinine 0.9 (0.6-1.0) mg/dL Est Cr Clr Drug Dosing 53.81 mL/min Estimated GFR (MDRD) > 60.0 ml/min Glucose 148 H (74-106) mg/dL Calcium 8.7 (8.5-10.1) mg/dL Total Bilirubin 0.5 (0.2-1.0) mg/dL Direct Bilirubin 0.10 (0.0-0.5) mg/dL AST 50 H (15-37) IU/L ALT 52 (14-63) IU/L Alkaline Phosphatase 51 (46-116) U/L Total Protein 6.7 (6.4-8.2) g/dL Albumin 2.4 L (3.4-5.0) g/dL Globulin 4.3 H (2.6-4.0) g/dL Albumin/Globulin Ratio 0.6 L (0.9-1.6) Deniz Results Last 24 Hours: Microbiology 10/17/21 10:25 Clostridioides difficile (PCR) - Final Stool / Feces - Stool, Liquid 10/17/21 10:25 C. difficile Antigen & Toxins A,B - Final Stool / Feces - Stool, Liquid Med Orders - Current: Current Medications Acetaminophen (Acetaminophen 325 Mg Tab) 650 mg PO Q4H PRN PRN Reason: headache Last Admin: 10/18/21 12:00 Dose: 650 mg Documented by: Benzonatate (Benzonatate 100 Mg Cap) 100 mg PO Q6H PRN PRN Reason: Cough Last Admin: 10/18/21 12:00 Dose: 100 mg Documented by: Enoxaparin Sodium (Enoxaparin 40 Mg/0.4 Ml Syringe) 40 mg SUBCUT Q24H JUDI Last Admin: 10/17/21 18:21 Dose: 40 mg Documented by: Guaifenesin/Dextromethorphan (Guaifenesin/Dextromethorphan 100-10 Mg/5 Ml Soln 10 Ml Cup) 10 ml PO Q4H PRN PRN Reason: Cough Last Admin: 10/18/21 09:09 Dose: 10 ml Documented by: Remdesivir 100 mg/ Sodium (Chloride) 100 mls @ 100 mls/hr IV Q24H [facility] Stop: 10/20/21 18:59 Last Admin: 10/17/21 18:22 Dose: 100 mls/hr Documented by: Sodium Chloride (Normal Saline) 500 mls @ 99 mls/hr IV ASDIRECTED [facility] Last Admin: 10/18/21 12:29 Dose: 99 mls/hr Documented by: Ondansetron HCl (Ondansetron 4 Mg/2 Ml Sdv) 4 mg IVPUSH Q6H PRN PRN Reason: Nausea/Vomiting Vancomycin HCl (Vancomycin 125 Mg Cap) 125 mg PO QID [facility] Last Admin: 10/18/21 12:00 Dose: 125 mg Documented by: Discontinued Medications Dexamethasone (Dexamethasone 4 Mg Tab) 6 mg PO ONETIME ONE Stop: 10/16/21 17:53 Last Admin: 10/16/21 18:22 Dose: 6 mg Documented by: Lactated Ringer's (Ringers, Lactated) 1,000 mls @ 999 mls/hr IV .BOLUS ONE Stop: 10/16/21 14:46 Last Admin: 10/16/21 14:11 Dose: 999 mls/hr Documented by: Remdesivir 200 mg/ Sodium (Chloride) 250 mls @ 250 mls/hr IV ONETIME ONE Stop: 10/16/21 17:54 Last Admin: 10/16/21 18:28 Dose: 250 mls/hr Documented by: Sodium Chloride (Normal Saline) 500 mls @ 99 mls/hr IV ASDIRECTED [facility] Stop: 10/18/21 16:19 Iopamidol (Iopamidol 755 Mg/Ml 500 Ml Multipack Bottle) 100 ml IVPUSH ONETIME STA Stop: 10/16/21 16:10 Last Admin: 10/16/21 16:10 Dose: 100 ml Documented by: Methylprednisolone Sodium Succinate (Methylprednisolone Sodium Succinate 40 Mg/1 Ml Sdv) 80 mg IVPUSH Q24H [facility] Last Admin: 10/16/21 22:05 Dose: 80 mg Documented by: Morphine Sulfate (Morphine 4 Mg/Ml Vial) 4 mg IVPUSH ONETIME ONE Stop: 10/16/21 13:47 Last Admin: 10/16/21 14:12 Dose: 4 mg Documented by: Ondansetron HCl (Ondansetron 4 Mg/2 Ml Sdv) 4 mg IVPUSH ONETIME ONE Stop: 10/16/21 18:28 Last Admin: 10/16/21 18:30 Dose: 4 mg Documented by: - Exam Quality Assessment: Supplemental Oxygen General: Alert, Oriented, Cooperative HEENT: Pupils Equal, Pupils Reactive Neck: Supple, Trachea Midline Lungs: Decreased Breath Sounds Cardiovascular: Regular Rate, Regular Rhythm GI/Abdominal Exam: Normal Bowel Sounds, Soft, No Distention, Tender Extremities: Normal Inspection. No: Christoph's Sign, Leg Pain - Patient Data Lab Results Last 24 hrs: Laboratory Results - last 24 hr 10/18/21 10/18/21 Range/Units 06:00 06:00 WBC 7.70 (4.0-11.0) K/uL RBC 5.32 (4.30-5.90) M/uL Hgb 16.0 (12.0-16.0) g/dL Hct 47.2 H (36.0-46.0) % MCV 88.7 (80.0-98.0) fL MCH 30.1 (27.0-32.0) pg MCHC 33.9 (31.0-37.0) g/dL RDW Std Deviation 44.8 (28.0-62.0) fl RDW Coeff of Isadora 14 (11.0-15.0) % Plt Count 235 (150-400) K/uL MPV 11.80 (7.40-12.00) fL Nucleated RBC % 0.0 /100WBC Nucleated RBCs # 0 K/uL Sodium 141 (136-145) mmol/L Potassium 4.0 (3.5-5.1) mmol/L Chloride 106 (98-107) mmol/L Carbon Dioxide 24.9 (21.0-32.0) mmol/L BUN 33 H (7.0-18.0) mg/dL Creatinine 0.9 (0.6-1.0) mg/dL Est Cr Clr Drug Dosing 53.81 mL/min Estimated GFR (MDRD) > 60.0 ml/min Glucose 148 H (74-106) mg/dL Calcium 8.7 (8.5-10.1) mg/dL Total Bilirubin 0.5 (0.2-1.0) mg/dL Direct Bilirubin 0.10 (0.0-0.5) mg/dL AST 50 H (15-37) IU/L ALT 52 (14-63) IU/L Alkaline Phosphatase 51 (46-116) U/L Total Protein 6.7 (6.4-8.2) g/dL Albumin 2.4 L (3.4-5.0) g/dL Globulin 4.3 H (2.6-4.0) g/dL Albumin/Globulin Ratio 0.6 L (0.9-1.6) Result Diagrams: 10/18/21 06:00 10/18/21 06:00 Deniz Results Last 24 hrs: Microbiology 10/17/21 10:25 Clostridioides difficile (PCR) - Final Stool / Feces - Stool, Liquid 10/17/21 10:25 C. difficile Antigen & Toxins A,B - Final Stool / Feces - Stool, Liquid Sepsis Event Note - Evaluation Sepsis Screening Result: No Definite Risk - Focused Exam Vital Signs: Vital Signs Temp Pulse Resp BP Pulse Ox 10/18/21 12:11 96.3 F L 83 16 117/65 93 L 10/18/21 09:06 96.2 F L 97 18 123/77 89 L 10/18/21 04:00 97.7 F 86 19 117/65 92 L - Problem List Review Problem List Initiated/Reviewed/Updated: Yes - My Orders Last 24 Hours: My Active Orders 10/17/21 18:00 Remdesivir 100 mg Sodium Chloride 0.9% [Normal Saline AdvBag] 100 ml IV Q24H 10/18/21 07:47 Dextromethorphan/guaiFENesin [Robitussin DM] 10 ml PO Q4H PRN 10/18/21 07:48 Benzonatate [Tessalon Perles] 100 mg PO Q6H PRN 10/18/21 11:19 RT Incentive Spirometry [RC] ASDIRECTED 10/18/21 11:20 Acetaminophen [TylenoL] 650 mg PO Q4H PRN 10/18/21 12:30 Sodium Chloride 0.9% [Normal Saline] 500 ml IV ASDIRECTED 10/19/21 05:11 CBC W/O DIFF,HEMOGRAM [HEME] DAILY 10/19/21 08:30 BILIRUBIN DIRECT [CHEM] DAILY COMPREHENSIVE METABOLIC PN,CMP [CHEM] DAILY 10/20/21 05:11 CBC W/O DIFF,HEMOGRAM [HEME] DAILY 10/20/21 08:30 BILIRUBIN DIRECT [CHEM] DAILY COMPREHENSIVE METABOLIC PN,CMP [CHEM] DAILY 10/21/21 08:30 BILIRUBIN DIRECT [CHEM] DAILY COMPREHENSIVE METABOLIC PN,CMP [CHEM] DAILY - Assessment Assessment:: C diff colitis Will start pt on oral vancomycin 125 mg QID x 14 days C. diff contact precautions Recent Covid 19 infection Pt does not have active disease at this time Hypoxemia likely residual lung damage from the recent viral pneumonitis oxygen supplementation continue with pulmonary rehabilitation Full code status DVT prophylaxis SQ lovenox. Morbid obesity life style modifications. <Bjorn Hendricks - Last Filed: 10/19/21 11:26> - Patient Data Vitals - Most Recent: Last Vital Signs Temp 97.5 F 10/19/21 08:24 Pulse 78 10/19/21 08:24 Resp 20 10/19/21 08:24 BP 114/70 10/19/21 08:24 Pulse Ox 90 L 10/19/21 08:24 I&O - Last 24 Hours: Intake & Output 10/18/21 10/19/21 10/19/21 22:59 06:59 14:59 Intake Total 600 950 Output Total 300 900 Balance 300 50 Lab Results Last 24 Hours: Laboratory Results - last 24 hr 10/19/21 10/19/21 10/19/21 Range/Units 08:35 08:35 08:35 WBC 9.45 (4.0-11.0) K/uL RBC 5.14 (4.30-5.90) M/uL Hgb 15.6 (12.0-16.0) g/dL Hct 46.0 (36.0-46.0) % MCV 89.5 (80.0-98.0) fL MCH 30.4 (27.0-32.0) pg MCHC 33.9 (31.0-37.0) g/dL RDW Std Deviation 45.1 (28.0-62.0) fl RDW Coeff of Isadora 14 (11.0-15.0) % Plt Count 224 (150-400) K/uL MPV 11.40 (7.40-12.00) fL Nucleated RBC % 0.0 /100WBC Nucleated RBCs # 0 K/uL Sodium 143 (136-145) mmol/L Potassium 3.6 (3.5-5.1) mmol/L Chloride 106 (98-107) mmol/L Carbon Dioxide 24.0 (21.0-32.0) mmol/L BUN 23 H (7.0-18.0) mg/dL Creatinine 0.8 (0.6-1.0) mg/dL Est Cr Clr Drug Dosing 60.54 mL/min Estimated GFR (MDRD) > 60.0 ml/min Glucose 133 H (74-106) mg/dL Calcium 8.4 L (8.5-10.1) mg/dL Magnesium 1.8 (1.8-2.4) mg/dL Total Bilirubin 0.4 (0.2-1.0) mg/dL Direct Bilirubin 0.10 (0.0-0.5) mg/dL AST 41 H (15-37) IU/L ALT 42 (14-63) IU/L Alkaline Phosphatase 54 (46-116) U/L Total Protein 6.4 (6.4-8.2) g/dL Albumin 2.5 L (3.4-5.0) g/dL Globulin 3.9 (2.6-4.0) g/dL Albumin/Globulin Ratio 0.6 L (0.9-1.6) Deniz Results Last 24 Hours: Microbiology 10/17/21 10:25 Clostridioides difficile (PCR) - Final Stool / Feces - Stool, Liquid Med Orders - Current: Current Medications Acetaminophen (Acetaminophen 325 Mg Tab) 650 mg PO Q4H PRN PRN Reason: headache Last Admin: 10/18/21 12:00 Dose: 650 mg Documented by: Acidophilus/Pectin (Acidophilus With Den[place] Pectin Tab) 1 tab PO DAILY JUDI Last Admin: 10/19/21 10:42 Dose: 1 tab Documented by: Benzonatate (Benzonatate 100 Mg Cap) 100 mg PO Q6H PRN PRN Reason: Cough Last Admin: 10/19/21 09:27 Dose: 100 mg Documented by: Enoxaparin Sodium (Enoxaparin 40 Mg/0.4 Ml Syringe) 40 mg SUBCUT Q24H JUDI Last Admin: 10/18/21 17:42 Dose: 40 mg Documented by: Guaifenesin/Dextromethorphan (Guaifenesin/Dextromethorphan 100-10 Mg/5 Ml Soln 10 Ml Cup) 10 ml PO Q4H PRN PRN Reason: Cough Last Admin: 10/19/21 09:27 Dose: 10 ml Documented by: Remdesivir 100 mg/ Sodium (Chloride) 100 mls @ 100 mls/hr IV Q24H [facility] Stop: 10/20/21 18:59 Last Admin: 10/18/21 17:45 Dose: 100 mls/hr Documented by: Sodium Chloride (Normal Saline) 500 mls @ 99 mls/hr IV ASDIRECTED [facility] Last Admin: 10/18/21 12:29 Dose: 99 mls/hr Documented by: Ondansetron HCl (Ondansetron 4 Mg/2 Ml Sdv) 4 mg IVPUSH Q6H PRN PRN Reason: Nausea/Vomiting Vancomycin HCl (Vancomycin 125 Mg Cap) 125 mg PO QID [facility] Last Admin: 10/19/21 11:00 Dose: 125 mg Documented by: Discontinued Medications Dexamethasone (Dexamethasone 4 Mg Tab) 6 mg PO ONETIME ONE Stop: 10/16/21 17:53 Last Admin: 10/16/21 18:22 Dose: 6 mg Documented by: Lactated Ringer's (Ringers, Lactated) 1,000 mls @ 999 mls/hr IV .BOLUS ONE Stop: 10/16/21 14:46 Last Admin: 10/16/21 14:11 Dose: 999 mls/hr Documented by: Remdesivir 200 mg/ Sodium (Chloride) 250 mls @ 250 mls/hr IV ONETIME ONE Stop: 10/16/21 17:54 Last Admin: 10/16/21 18:28 Dose: 250 mls/hr Documented by: Sodium Chloride (Normal Saline) 500 mls @ 99 mls/hr IV ASDIRECTED [facility] Stop: 10/18/21 16:19 Iopamidol (Iopamidol 755 Mg/Ml 500 Ml Multipack Bottle) 100 ml IVPUSH ONETIME STA Stop: 10/16/21 16:10 Last Admin: 10/16/21 16:10 Dose: 100 ml Documented by: Methylprednisolone Sodium Succinate (Methylprednisolone Sodium Succinate 40 Mg/1 Ml Sdv) 80 mg IVPUSH Q24H [facility] Last Admin: 10/16/21 22:05 Dose: 80 mg Documented by: Morphine Sulfate (Morphine 4 Mg/Ml Vial) 4 mg IVPUSH ONETIME ONE Stop: 10/16/21 13:47 Last Admin: 10/16/21 14:12 Dose: 4 mg Documented by: Ondansetron HCl (Ondansetron 4 Mg/2 Ml Sdv) 4 mg IVPUSH ONETIME ONE Stop: 10/16/21 18:28 Last Admin: 10/16/21 18:30 Dose: 4 mg Documented by: Potassium Chloride (Potassium Chloride 20 Meq Tab.Er) 40 meq PO ONETIME ONE Stop: 10/19/21 09:41 Last Admin: 10/19/21 10:38 Dose: 40 meq Documented by: - Patient Data Lab Results Last 24 hrs: Laboratory Results - last 24 hr 10/19/21 10/19/21 10/19/21 Range/Units 08:35 08:35 08:35 WBC 9.45 (4.0-11.0) K/uL RBC 5.14 (4.30-5.90) M/uL Hgb 15.6 (12.0-16.0) g/dL Hct 46.0 (36.0-46.0) % MCV 89.5 (80.0-98.0) fL MCH 30.4 (27.0-32.0) pg MCHC 33.9 (31.0-37.0) g/dL RDW Std Deviation 45.1 (28.0-62.0) fl RDW Coeff of Isadora 14 (11.0-15.0) % Plt Count 224 (150-400) K/uL MPV 11.40 (7.40-12.00) fL Nucleated RBC % 0.0 /100WBC Nucleated RBCs # 0 K/uL Sodium 143 (136-145) mmol/L Potassium 3.6 (3.5-5.1) mmol/L Chloride 106 (98-107) mmol/L Carbon Dioxide 24.0 (21.0-32.0) mmol/L BUN 23 H (7.0-18.0) mg/dL Creatinine 0.8 (0.6-1.0) mg/dL Est Cr Clr Drug Dosing 60.54 mL/min Estimated GFR (MDRD) > 60.0 ml/min Glucose 133 H (74-106) mg/dL Calcium 8.4 L (8.5-10.1) mg/dL Magnesium 1.8 (1.8-2.4) mg/dL Total Bilirubin 0.4 (0.2-1.0) mg/dL Direct Bilirubin 0.10 (0.0-0.5) mg/dL AST 41 H (15-37) IU/L ALT 42 (14-63) IU/L Alkaline Phosphatase 54 (46-116) U/L Total Protein 6.4 (6.4-8.2) g/dL Albumin 2.5 L (3.4-5.0) g/dL Globulin 3.9 (2.6-4.0) g/dL Albumin/Globulin Ratio 0.6 L (0.9-1.6) Result Diagrams: 10/19/21 08:35 10/19/21 08:35 Deniz Results Last 24 hrs: Microbiology 10/17/21 10:25 Clostridioides difficile (PCR) - Final Stool / Feces - Stool, Liquid Sepsis Event Note - Focused Exam Vital Signs: Vital Signs Temp Pulse Resp BP Pulse Ox Pulse Ox 10/19/21 08:24 97.5 F 78 20 114/70 90 L 10/19/21 08:00 91 L 10/19/21 03:57 96.7 F L 99 18 110/72 89 L 10/19/21 00:00 96.9 F 99 18 123/73 95 - Problem List & Annotations (1) C. difficile colitis SNOMED Code(s): 040703938 Code(s): A04.72 - ENTEROCOLITIS D/T CLOSTRIDIUM DIFFICILE, NOT SPCF RECUR Status: Acute Current Visit: Yes (2) COVID-19 virus infection SNOMED Code(s): 800726600 Code(s): U07.1 - COVID-19 Status: Acute Current Visit: Yes (3) Hypoxemia SNOMED Code(s): 926923037 Code(s): R09.02 - HYPOXEMIA Status: Acute Current Visit: Yes (4) Obesity SNOMED Code(s): 855769528, 979508563 Code(s): E66.9 - OBESITY, UNSPECIFIED Status: Chronic Current Visit: Yes (5) Full code status SNOMED Code(s): 513930716 Code(s): Z78.9 - OTHER SPECIFIED HEALTH STATUS Status: Acute Current Visit: Yes (6) DVT prophylaxis SNOMED Code(s): 979137477, 172015258 Code(s): Z29.9 - ENCOUNTER FOR PROPHYLACTIC MEASURES, UNSPECIFIED Status: Acute Current Visit: Yes - Assessment Assessment:: Continue with oral vancomycin x 14 days Encourage pt to ambulate anticipate DC home tomorrow.
[2021-10-18] MEDS: Enoxaparin 40 MG/0.4 ML Syringe SUBCUT SCH (17:42)
[2021-10-18] MEDS: REMDESIVIR 100 MG in Sodium Chloride 0.9% 100 ML IV SCH (17:45)
[2021-10-19] MEDS: guaiFENesin/Dextromethorphan 100-10 MG/5 ML Soln 10 ML Cup PO PRN ×3 (02:57→19:56)
[2021-10-19] MEDS: Vancomycin 125 MG Cap PO SCH ×4 (05:50→23:32)
[2021-10-19 09:19] LABS: BLOOD UREA NITROGEN,BUN 23 mg/dL (7.0-18.0); CHLORIDE,CL 106 mmol/L (98-107); GLUCOSE RANDOM 133 mg/dL (74-106); POTASSIUM,K 3.6 mmol/L (3.5-5.1); SODIUM,NA 143 mmol/L (136-145)
[2021-10-19] MEDS: Benzonatate 100 MG Cap PO PRN ×2 (09:27→19:56)
--- NOTE | 2021-10-19 09:36 | PCM.PN ---
- General Info Date of Service: 10/19/21 Admission Dx/Problem (Free Text): Admission Diagnosis/Problem Admission Diagnosis/Problem Hypoxia Subjective Update: Reports she is feeling somewhat improved in regards to diarrhea, appetite remains poor. 2 loose stools overnight. Still fees SOB especially with movement. Reports all she wants to do is sleep. Encouraged to get up and move, sit in chair and eat small amounts of bland food. Functional Status: Reports: Pain Controlled, Ambulating, Urinating. Denies: Tolerating Diet - Review of Systems General: Reports: Weakness, Fatigue, Malaise HEENT: Reports: No Symptoms Pulmonary: Reports: Shortness of Breath, Cough. Denies: Sputum, Hemoptysis Cardiovascular: Denies: Chest Pain, Palpitations Gastrointestinal: Reports: Abdominal Pain (diffuse cramping intermittently), Decreased Appetite, Diarrhea (improving) Genitourinary: Reports: No Symptoms Musculoskeletal: Reports: No Symptoms. Denies: Neck Pain Skin: Reports: No Symptoms Neurological: Reports: No Symptoms Psychiatric: Reports: No Symptoms - Patient Data Vitals - Most Recent: Last Vital Signs Temp 97.5 F 10/19/21 08:24 Pulse 78 10/19/21 08:24 Resp 20 10/19/21 08:24 BP 114/70 10/19/21 08:24 Pulse Ox 90 L 10/19/21 08:24 Weight - Most Recent: 98.5 kg I&O - Last 24 Hours: Intake & Output 10/18/21 10/19/21 10/19/21 22:59 06:59 14:59 Intake Total 600 950 Output Total 300 900 Balance 300 50 Lab Results Last 24 Hours: Laboratory Results - last 24 hr 10/19/21 10/19/21 Range/Units 08:35 08:35 WBC 9.45 (4.0-11.0) K/uL RBC 5.14 (4.30-5.90) M/uL Hgb 15.6 (12.0-16.0) g/dL Hct 46.0 (36.0-46.0) % MCV 89.5 (80.0-98.0) fL MCH 30.4 (27.0-32.0) pg MCHC 33.9 (31.0-37.0) g/dL RDW Std Deviation 45.1 (28.0-62.0) fl RDW Coeff of Isadora 14 (11.0-15.0) % Plt Count 224 (150-400) K/uL MPV 11.40 (7.40-12.00) fL Nucleated RBC % 0.0 /100WBC Nucleated RBCs # 0 K/uL Sodium 143 (136-145) mmol/L Potassium 3.6 (3.5-5.1) mmol/L Chloride 106 (98-107) mmol/L Carbon Dioxide 24.0 (21.0-32.0) mmol/L BUN 23 H (7.0-18.0) mg/dL Creatinine 0.8 (0.6-1.0) mg/dL Est Cr Clr Drug Dosing 60.54 mL/min Estimated GFR (MDRD) > 60.0 ml/min Glucose 133 H (74-106) mg/dL Calcium 8.4 L (8.5-10.1) mg/dL Total Bilirubin 0.4 (0.2-1.0) mg/dL Direct Bilirubin 0.10 (0.0-0.5) mg/dL AST 41 H (15-37) IU/L ALT 42 (14-63) IU/L Alkaline Phosphatase 54 (46-116) U/L Total Protein 6.4 (6.4-8.2) g/dL Albumin 2.5 L (3.4-5.0) g/dL Globulin 3.9 (2.6-4.0) g/dL Albumin/Globulin Ratio 0.6 L (0.9-1.6) Deniz Results Last 24 Hours: Microbiology 10/17/21 10:25 Clostridioides difficile (PCR) - Final Stool / Feces - Stool, Liquid Med Orders - Current: Current Medications Acetaminophen (Acetaminophen 325 Mg Tab) 650 mg PO Q4H PRN PRN Reason: headache Last Admin: 10/18/21 12:00 Dose: 650 mg Documented by: Benzonatate (Benzonatate 100 Mg Cap) 100 mg PO Q6H PRN PRN Reason: Cough Last Admin: 10/19/21 09:27 Dose: 100 mg Documented by: Enoxaparin Sodium (Enoxaparin 40 Mg/0.4 Ml Syringe) 40 mg SUBCUT Q24H [facility] Last Admin: 10/18/21 17:42 Dose: 40 mg Documented by: Guaifenesin/Dextromethorphan (Guaifenesin/Dextromethorphan 100-10 Mg/5 Ml Soln 10 Ml Cup) 10 ml PO Q4H PRN PRN Reason: Cough Last Admin: 10/19/21 09:27 Dose: 10 ml Documented by: Remdesivir 100 mg/ Sodium (Chloride) 100 mls @ 100 mls/hr IV Q24H [facility] Stop: 10/20/21 18:59 Last Admin: 10/18/21 17:45 Dose: 100 mls/hr Documented by: Sodium Chloride (Normal Saline) 500 mls @ 99 mls/hr IV ASDIRECTED [facility] Last Admin: 10/18/21 12:29 Dose: 99 mls/hr Documented by: Ondansetron HCl (Ondansetron 4 Mg/2 Ml Sdv) 4 mg IVPUSH Q6H PRN PRN Reason: Nausea/Vomiting Vancomycin HCl (Vancomycin 125 Mg Cap) 125 mg PO QID [facility] Last Admin: 10/19/21 05:50 Dose: 125 mg Documented by: Discontinued Medications Dexamethasone (Dexamethasone 4 Mg Tab) 6 mg PO ONETIME ONE Stop: 10/16/21 17:53 Last Admin: 10/16/21 18:22 Dose: 6 mg Documented by: Lactated Ringer's (Ringers, Lactated) 1,000 mls @ 999 mls/hr IV .BOLUS ONE Stop: 10/16/21 14:46 Last Admin: 10/16/21 14:11 Dose: 999 mls/hr Documented by: Remdesivir 200 mg/ Sodium (Chloride) 250 mls @ 250 mls/hr IV ONETIME ONE Stop: 10/16/21 17:54 Last Admin: 10/16/21 18:28 Dose: 250 mls/hr Documented by: Sodium Chloride (Normal Saline) 500 mls @ 99 mls/hr IV ASDIRECTED [facility] Stop: 10/18/21 16:19 Iopamidol (Iopamidol 755 Mg/Ml 500 Ml Multipack Bottle) 100 ml IVPUSH ONETIME STA Stop: 10/16/21 16:10 Last Admin: 10/16/21 16:10 Dose: 100 ml Documented by: Methylprednisolone Sodium Succinate (Methylprednisolone Sodium Succinate 40 Mg/1 Ml Sdv) 80 mg IVPUSH Q24H [facility] Last Admin: 10/16/21 22:05 Dose: 80 mg Documented by: Morphine Sulfate (Morphine 4 Mg/Ml Vial) 4 mg IVPUSH ONETIME ONE Stop: 10/16/21 13:47 Last Admin: 10/16/21 14:12 Dose: 4 mg Documented by: Ondansetron HCl (Ondansetron 4 Mg/2 Ml Sdv) 4 mg IVPUSH ONETIME ONE Stop: 10/16/21 18:28 Last Admin: 10/16/21 18:30 Dose: 4 mg Documented by: - Exam Quality Assessment: Supplemental Oxygen General: Alert, Oriented, Cooperative, Mild Distress (cough with movement in bed and deep breating) Lungs: Decreased Breath Sounds. No: Normal Respiratory Effort (mild dyspnea noted) GI/Abdominal Exam: Normal Bowel Sounds, Soft, No Distention, Tender (diffuse te nderness) Back Exam: Normal Inspection, Full Range of Motion Extremities: Normal Inspection, Normal Range of Motion, Pedal Edema (scant pedal edema) Neurological: No New Focal Deficit Psy/Mental Status: Alert, Normal Affect, Normal Mood - Patient Data Lab Results Last 24 hrs: Laboratory Results - last 24 hr 10/19/21 10/19/21 Range/Units 08:35 08:35 WBC 9.45 (4.0-11.0) K/uL RBC 5.14 (4.30-5.90) M/uL Hgb 15.6 (12.0-16.0) g/dL Hct 46.0 (36.0-46.0) % MCV 89.5 (80.0-98.0) fL MCH 30.4 (27.0-32.0) pg MCHC 33.9 (31.0-37.0) g/dL RDW Std Deviation 45.1 (28.0-62.0) fl RDW Coeff of Isadora 14 (11.0-15.0) % Plt Count 224 (150-400) K/uL MPV 11.40 (7.40-12.00) fL Nucleated RBC % 0.0 /100WBC Nucleated RBCs # 0 K/uL Sodium 143 (136-145) mmol/L Potassium 3.6 (3.5-5.1) mmol/L Chloride 106 (98-107) mmol/L Carbon Dioxide 24.0 (21.0-32.0) mmol/L BUN 23 H (7.0-18.0) mg/dL Creatinine 0.8 (0.6-1.0) mg/dL Est Cr Clr Drug Dosing 60.54 mL/min Estimated GFR (MDRD) > 60.0 ml/min Glucose 133 H (74-106) mg/dL Calcium 8.4 L (8.5-10.1) mg/dL Total Bilirubin 0.4 (0.2-1.0) mg/dL Direct Bilirubin 0.10 (0.0-0.5) mg/dL AST 41 H (15-37) IU/L ALT 42 (14-63) IU/L Alkaline Phosphatase 54 (46-116) U/L Total Protein 6.4 (6.4-8.2) g/dL Albumin 2.5 L (3.4-5.0) g/dL Globulin 3.9 (2.6-4.0) g/dL Albumin/Globulin Ratio 0.6 L (0.9-1.6) Result Diagrams: 10/19/21 08:35 10/19/21 08:35 Deniz Results Last 24 hrs: Microbiology 10/17/21 10:25 Clostridioides difficile (PCR) - Final Stool / Feces - Stool, Liquid Sepsis Event Note - Evaluation Sepsis Screening Result: No Definite Risk - Focused Exam Vital Signs: Vital Signs Temp Pulse Resp BP Pulse Ox 10/19/21 08:24 97.5 F 78 20 114/70 90 L 10/19/21 03:57 96.7 F L 99 18 110/72 89 L 10/19/21 00:00 96.9 F 99 18 123/73 95 - Problem List & Annotations (1) Acute respiratory failure due to COVID-19 SNOMED Code(s): 004151325 Code(s): U07.1 - COVID-19; J96.00 - ACUTE RESPIRATORY FAILURE, UNSP W HYPOXIA OR HYPERCAPNIA Status: Acute Current Visit: Yes (2) C. difficile colitis SNOMED Code(s): 368615854 Code(s): A04.72 - ENTEROCOLITIS D/T CLOSTRIDIUM DIFFICILE, NOT SPCF RECUR Status: Acute Current Visit: Yes (3) COVID-19 SNOMED Code(s): 397857435 Code(s): U07.1 - COVID-19 Status: Acute Current Visit: Yes (4) Obesity SNOMED Code(s): 759636244, 790249250 Code(s): E66.9 - OBESITY, UNSPECIFIED Status: Chronic Current Visit: Yes - Problem List Review Problem List Initiated/Reviewed/Updated: Yes - My Orders Last 24 Hours: My Active Orders 10/19/21 09:35 Up to Chair [RC] ASDIRECTED PT Evaluation and Treatment [CONS] Routine - Plan Plan:: This 66 year old female admitted with acute hypoxic respiratory failure, COVID 19, and Cdiff colitis. 1. C diff colitis - Continue oral vancomycin 125 mg QID x 14 days - C. diff contact precautions - Add probiotic - Encourage po intake, bland foods - replace Potasssium 40 meq PO, Mag stable. monitor due to diarrhea. 2. Recent Covid 19 infection - Hypoxic, may need home O2. - Encouraged ambulation - Remains on Remdesivir 3. Hypoxemia - likely residual lung damage from the recent viral pneumonitis - oxygen supplementation - continue with pulmonary rehabilitation, - May need Home O2 - Encouraged ambulation Code status: Full code status VTE prophylaxis: SQ lovenox. Dispo: 1-2 days pending improved appetite
[2021-10-19] MEDS ORDERED: Potassium Chloride 20 MEQ Tab.ER PO ONE (09:40)
[2021-10-19] MEDS: Acidophilus with Citrus Pectin Tab PO SCH (10:42)
[2021-10-19] MEDS: REMDESIVIR 100 MG in Sodium Chloride 0.9% 100 ML IV SCH (18:12)
[2021-10-19] MEDS: Enoxaparin 40 MG/0.4 ML Syringe SUBCUT SCH (18:13)
[2021-10-20] MEDS: Vancomycin 125 MG Cap PO SCH ×2 (06:35→12:19)
[2021-10-20] MEDS: Benzonatate 100 MG Cap PO PRN (08:39)
[2021-10-20] MEDS: guaiFENesin/Dextromethorphan 100-10 MG/5 ML Soln 10 ML Cup PO PRN (08:39)
[2021-10-20] MEDS: Acidophilus with Citrus Pectin Tab PO SCH (08:40)
[2021-10-20 09:10] LABS: BLOOD UREA NITROGEN,BUN 14 mg/dL (7.0-18.0); CARBON DIOXIDE,CO2 27.3 mmol/L (21.0-32.0); CHLORIDE,CL 106 mmol/L (98-107); GLUCOSE RANDOM 116 mg/dL (74-106); POTASSIUM,K 4.2 mmol/L (3.5-5.1); SODIUM,NA 142 mmol/L (136-145)
--- NOTE | 2021-10-20 11:25 | PCM.DCSUM1 ---
Discharge Summary - Hospital Course Free Text/Narrative:: The patient is a 66-year-old female, on day 4 for service, who was admitted to the medical floor due to acute respiratory failure secondary to COVID-19 pneumonia as well as diarrhea secondary to Clostridium difficile infection. Throughout the patient's hospital stay she was treated for her COVID-19 infection with different protocol medications including remdesivir per IV route, and was supplied oxygen via nasal cannula. She had a walking trial completed this morning which deciphered that she will need 2 L of oxygen continuously both upon rest and ambulation. [facility] will come talk to the patient today in regards to the oxygen apparatus that she will be taking home. She will also be sent home with an albuterol inhaler, 1 to 2 puffs to be used every 4 hours for shortness of breath. She will also receive Robitussin-DM for any lingering cough symptoms. In regards to her C. difficile infection, her abdominal pain has significantly improved today and is 1 out of 10 in intensity, and she admits that her diarrhea has subsided. Subsequently, she will be sent home with a vancomycin 125 mg prescription to be used 4 times a day per oral route for a 7-day course. The patient has been counseled on returning to the hospital if she has any increasing respiratory difficulty, shortness of breath, chest pain, palpitations, worsening diarrhea or abdominal pain. She has also been educated on being compliant with her medication and taking them at scheduled times. She has also been advised to follow-up with her primary care provider Dr. Turpin. The patient is now stable and can be discharged home safely. - Discharge Data Discharge Date: 10/20/21 Discharge Disposition: Home, Self-Care 01 Condition: Stable - Referral to Home Health Primary Care Physician: PCP None - Patient Summary/Data Consults: Consultations 10/19/21 09:35 PT Evaluation and Treatment [CONS] Routine - Patient Instructions Diet: Regular Diet as Tolerated Activity: As Tolerated Showering/Bathing: May Shower Other/Special Instructions: -Return to the hospital if you have increasing respiratory difficulty, shortness of breath, chest pain, palpitations, worsening diarrhea or abdominal pain. -Be compliant with your medication and take them at scheduled times. -Follow-up with your PCP - Discharge Plan *PRESCRIPTION DRUG MONITORING PROGRAM REVIEWED*: No *COPY OF PRESCRIPTION DRUG MONITORING REPORT IN PATIENT RICHARD: No Prescriptions/Med Rec: Albuterol Sulfate [Albuterol Sulfate Hfa] 8.5 gm IH Q4H #1 hfa.aer.ad Dextromethorphan/guaiFENesin [Robitussin DM] 10 ml PO Q4H PRN #120 ml PRN Reason: Cough Vancomycin [Vancocin 125 MG Capsule] 125 mg PO QID 7 Days #28 cap Home Medications: Home Meds Albuterol Sulfate [Albuterol Sulfate Hfa] 8.5 gm IH Q4H #1 hfa.aer.ad 10/20/21 [Rx] Dextromethorphan/guaiFENesin [Robitussin DM] 10 ml PO Q4H PRN #120 ml 10/20/21 [Rx] Vancomycin [Vancocin 125 MG Capsule] 125 mg PO QID 7 Days #28 cap 10/20/21 [Rx] Oxygen Therapy Mode: Nasal Cannula Oxygen Flow Rate (L/min): 2 (to be used continuously) Patient Handouts: COVID-19 Frequently Asked Questions, COVID-19 Vaccine Information, Food Choices to Help Relieve Diarrhea, Adult, COVID-19: How to Protect Yourself and Others - CDC, Diarrhea, Adult, [id number] Referrals: Savage Turpin MD [Physician] - 10/31/21 9:00 am - Discharge Summary/Plan Comment DC Time >30 min.: Yes Total # of Minutes for Discharge Time: 35 minutes - Review of Systems General: Denies: Weakness, Fatigue, Chills HEENT: Denies: Headaches Pulmonary: Denies: Shortness of Breath, Cough Cardiovascular: Denies: Chest Pain, Palpitations Gastrointestinal: Reports: Abdominal Pain. Denies: Constipation, Diarrhea Genitourinary: Denies: Dysuria, Frequency, Burning - Patient Data Vitals - Most Recent: Last Vital Signs Temp 98.1 F 10/20/21 03:40 Pulse 101 H 10/20/21 03:40 Resp 20 10/20/21 03:40 BP 129/73 10/20/21 03:40 Pulse Ox 90 L 10/20/21 03:40 Weight - Most Recent: 217 lb 2.485 oz I&O - Last 24 hours: Intake & Output 10/19/21 10/20/21 10/20/21 22:59 06:59 14:59 Intake Total 1000 500 Output Total 900 500 Balance 100 0 Lab Results - Last 24 hrs: Laboratory Results - last 24 hr 10/20/21 10/20/21 Range/Units 08:40 08:40 WBC 8.71 (4.0-11.0) K/uL RBC 4.98 (4.30-5.90) M/uL Hgb 15.0 (12.0-16.0) g/dL Hct 45.0 (36.0-46.0) % MCV 90.4 (80.0-98.0) fL MCH 30.1 (27.0-32.0) pg MCHC 33.3 (31.0-37.0) g/dL RDW Std Deviation 46.2 (28.0-62.0) fl RDW Coeff of Isadora 14 (11.0-15.0) % Plt Count 245 (150-400) K/uL MPV 11.80 (7.40-12.00) fL Nucleated RBC % 0.0 /100WBC Nucleated RBCs # 0 K/uL Sodium 142 (136-145) mmol/L Potassium 4.2 (3.5-5.1) mmol/L Chloride 106 (98-107) mmol/L Carbon Dioxide 27.3 (21.0-32.0) mmol/L BUN 14 (7.0-18.0) mg/dL Creatinine 0.9 (0.6-1.0) mg/dL Est Cr Clr Drug Dosing 53.81 mL/min Estimated GFR (MDRD) > 60.0 ml/min Glucose 116 H (74-106) mg/dL Calcium 8.2 L (8.5-10.1) mg/dL Total Bilirubin 0.6 (0.2-1.0) mg/dL AST 35 (15-37) IU/L ALT 41 (14-63) IU/L Alkaline Phosphatase 49 (46-116) U/L Total Protein 6.3 L (6.4-8.2) g/dL Albumin 2.3 L (3.4-5.0) g/dL Globulin 4.0 (2.6-4.0) g/dL Albumin/Globulin Ratio 0.6 L (0.9-1.6) Med Orders - Current: Current Medications Acetaminophen (Acetaminophen 325 Mg Tab) 650 mg PO Q4H PRN PRN Reason: headache Last Admin: 10/18/21 12:00 Dose: 650 mg Documented by: Acidophilus/Pectin (Acidophilus With Moca Pectin Tab) 1 tab PO DAILY [facility] Last Admin: 10/20/21 08:40 Dose: 1 tab Documented by: Benzonatate (Benzonatate 100 Mg Cap) 100 mg PO Q6H PRN PRN Reason: Cough Last Admin: 10/20/21 08:39 Dose: 100 mg Documented by: Enoxaparin Sodium (Enoxaparin 40 Mg/0.4 Ml Syringe) 40 mg SUBCUT Q24H [facility] Last Admin: 10/19/21 18:13 Dose: 40 mg Documented by: Guaifenesin/Dextromethorphan (Guaifenesin/Dextromethorphan 100-10 Mg/5 Ml Soln 10 Ml Cup) 10 ml PO Q4H PRN PRN Reason: Cough Last Admin: 10/20/21 08:39 Dose: 10 ml Documented by: Sodium Chloride (Normal Saline) 500 mls @ 99 mls/hr IV ASDIRECTED [facility] Last Admin: 10/18/21 12:29 Dose: 99 mls/hr Documented by: Remdesivir 100 mg/ Sodium (Chloride) 100 mls @ 100 mls/hr IV Q24H [facility] Stop: 10/20/21 12:59 Ondansetron HCl (Ondansetron 4 Mg/2 Ml Sdv) 4 mg IVPUSH Q6H PRN PRN Reason: Nausea/Vomiting Vancomycin HCl (Vancomycin 125 Mg Cap) 125 mg PO QID [facility] Last Admin: 10/20/21 06:35 Dose: 125 mg Documented by: Discontinued Medications Dexamethasone (Dexamethasone 4 Mg Tab) 6 mg PO ONETIME ONE Stop: 10/16/21 17:53 Last Admin: 10/16/21 18:22 Dose: 6 mg Documented by: Lactated Ringer's (Ringers, Lactated) 1,000 mls @ 999 mls/hr IV .BOLUS ONE Stop: 10/16/21 14:46 Last Admin: 10/16/21 14:11 Dose: 999 mls/hr Documented by: Remdesivir 200 mg/ Sodium (Chloride) 250 mls @ 250 mls/hr IV ONETIME ONE Stop: 10/16/21 17:54 Last Admin: 10/16/21 18:28 Dose: 250 mls/hr Documented by: Remdesivir 100 mg/ Sodium (Chloride) 100 mls @ 100 mls/hr IV Q24H [facility] Stop: 10/20/21 18:59 Last Admin: 10/19/21 18:12 Dose: 100 mls/hr Documented by: Sodium Chloride (Normal Saline) 500 mls @ 99 mls/hr IV ASDIRECTED [facility] Stop: 10/18/21 16:19 Iopamidol (Iopamidol 755 Mg/Ml 500 Ml Multipack Bottle) 100 ml IVPUSH ONETIME STA Stop: 10/16/21 16:10 Last Admin: 10/16/21 16:10 Dose: 100 ml Documented by: Methylprednisolone Sodium Succinate (Methylprednisolone Sodium Succinate 40 Mg/1 Ml Sdv) 80 mg IVPUSH Q24H [facility] Last Admin: 10/16/21 22:05 Dose: 80 mg Documented by: Morphine Sulfate (Morphine 4 Mg/Ml Vial) 4 mg IVPUSH ONETIME ONE Stop: 10/16/21 13:47 Last Admin: 10/16/21 14:12 Dose: 4 mg Documented by: Ondansetron HCl (Ondansetron 4 Mg/2 Ml Sdv) 4 mg IVPUSH ONETIME ONE Stop: 10/16/21 18:28 Last Admin: 10/16/21 18:30 Dose: 4 mg Documented by: Potassium Chloride (Potassium Chloride 20 Meq Tab.Er) 40 meq PO ONETIME ONE Stop: 10/19/21 09:41 Last Admin: 10/19/21 10:38 Dose: 40 meq Documented by: - Exam General: Reports: Alert, Oriented, Cooperative HEENT: Reports: Mucous Membr. Moist/[place] Neck: Reports: Trachea Midline Lungs: Reports: Clear to Auscultation, Normal Respiratory Effort Cardiovascular: Reports: Regular Rate, Regular Rhythm GI/Abdominal Exam: Normal Bowel Sounds, Soft, Non-Tender
[2021-10-20] MEDS ORDERED: REMDESIVIR 100 MG in Sodium Chloride 0.9% 100 ML IV SCH (12:00)
== END 2021-10-20 14:30 | disposition home or self-care (01) | DRG 137 ==
LOC: MW.ED 12:55 → MW.MS 17:55
PROVIDERS: ADMIT Hospitalist; ATTEND Hospitalist
PROC: XW033E5 Introduction of Remdesivir Anti-infective into Peripheral Vein, Percutaneous Approach, New Technology Group 5 (ICD-10-PCS; principal; 2021-10-16)
PROC: 3E0DX3Z Introduction of Anti-inflammatory into Mouth and Pharynx, External Approach (ICD-10-PCS; 2021-10-16)
DX: U07.1 COVID-19 (principal); J12.82 Pneumonia due to coronavirus disease 2019; J96.01 Acute respiratory failure with hypoxia; A08.39 Other viral enteritis; A04.72 Enterocolitis due to Clostridium difficile, not specified as recurrent; E66.01 Morbid (severe) obesity due to excess calories; Z88.6 Allergy status to analgesic agent; Z88.5 Allergy status to narcotic agent; Z88.0 Allergy status to penicillin
CPT/HCPCS: 36415; 74177; 74177-26; 80053; 81001; 82248; 83735; 85025; 85027; 85610; 87324; 87493; 96374; 97162-GP; 97530-GP; 99285-25; A9270-GY; J1650; J2270; J2405; J2920; J7040; J7050; J7120; J8540; Q9967

== ENCOUNTER 2021-10-26 13:24 | Emergency (ER) | payer BC ==
[2021-10-26] MEDS ORDERED: EPINEPHrine 1 MG/ML 30 ML MDV IVPUSH STA ×2 (13:29→13:31)
--- NOTE | 2021-10-26 13:41 | EDM.PDOC ---
ED HPI GENERAL MEDICAL PROBLEM - General Chief Complaint: CPR in Progress Stated Complaint: CODE BLUE Time Seen by Provider: 10/26/21 13:36 - History of Present Illness INITIAL COMMENTS - FREE TEXT/NARRATIVE: History of present illness: [] Patient arrested at home. She was recently released with Covid on home O2. She was coughing or vomiting bright red blood in the home and there were at least 300 mL of blood on the floor. Airway was occluded with thick heavy bloody secretions. Hernandez airway was placed CPR done and epinephrine given at least 8 rounds. After more than 20 minutes of CPR the patient developed a QRS complex on the monitor and because of that and the fact that the wanted us to continue the efforts she was brought by EMS to the emergency department. She had no neurologic activity no pulse and no signs of life. There was a QRS occasionally on the monitor but essentially she was in asystole for most of the code and for the time that she was here. With the help of anesthesia the patient was intubated and Hernandez airway removed. Ventilation was ascertained with good airway sounds in both lungs and no epigastric sounds. CPR was continued for several rounds and epinephrine given again twice. After that time since there was no sign of life I took the portable ultrasound verified no pneumothorax AN that there was no cardiac activity. Patient was pronounced at 1332 hrs. Review of systems: As per history of present illness and below otherwise all systems reviewed and negative. Past medical history: As per history of present illness and as reviewed below otherwise noncontributory. Surgical history: As per history of present illness and as reviewed below otherwise noncontributory. Social history: No reported history of drug or alcohol abuse. Family history: As per history of present illness and as reviewed below otherwise noncontributory. Physical exam: Constitutional - well developed, well-nourished HEENT - normocephalic, no evidence of trauma - external nose and mouth normal - no mass in neck and no JVD - mucosae moist EYES - full EOM, pupils fixed, no icterus - no evidence of inflammation, injection, or drainage Respiratory -equal expansion with a bag valve per ET tube. Lung sounds with a few scattered rales but fairly good lung sounds on both sides. Cardiovascular -no heart sounds and no pulse. GI - abdomen slightly distended. No external evidence of trauma. Musculoskeletal no gross deformity of long bones or joints - no tenderness, swelling or edema Neurologic -no reflexes and no spontaneous neurologic activity. Psychiatric -not applicable Hematologic - No petechiae or purpura - mucosa appropriate color and sclera not pale - normal nail bed color and refill Integument - no rash or evidence of trauma - normal turgor Diagnostics: [] Therapeutics: [] Impression: [] Plan: [] Definitive disposition and diagnosis as appropriate pending reevaluation and review of above. - Related Data Allergies Allergy/AdvReac Type Severity Reaction Status Date / Time aspirin Allergy Hives Verified 10/16/21 13:33 codeine Allergy Vomiting Verified 10/16/21 13:33 Penicillins Allergy unknown Verified 10/16/21 13:33 Home Meds: Home Meds Albuterol Sulfate [Albuterol Sulfate Hfa] 8.5 gm IH Q4H #1 hfa.aer.ad 10/20/21 [Rx] Dextromethorphan/guaiFENesin [Robitussin DM] 10 ml PO Q4H PRN #120 ml 10/20/21 [Rx] Vancomycin [Vancocin 125 MG Capsule] 125 mg PO QID 7 Days #28 cap 10/20/21 [Rx] Past Medical History - Past Health History Medical/Surgical History: Denies Medical/Surgical History ADVANCED REGISTERED NURSE History: Reports: Other (See Below) Other ADVANCED REGISTERED NURSE History: Tube tied Musculoskeletal History: Reports: None - Infectious Disease History Infectious Disease History: Reports: Chicken Pox, Measles, Mumps - Past Surgical History Other Respiratory Surgeries/Procedures: Diagnose with covid 10/02/21 Social & Family History - Family History Family Medical History: No Pertinent Family History - Caffeine Use Caffeine Use: Reports: Coffee, Soda ED ROS GENERAL - Review of Systems Review Of Systems: Unable To Obtain (Patient unconscious) Reason Not Obtained: Unconscious ED EXAM, GENERAL - Physical Exam Exam: See Below Free Text/Narrative:: My physical exam is in the HPI Departure - Departure Time of Disposition: 13:37 Disposition: 20 Condition: Critical Clinical Impression: Cardiopulmonary arrest - Discharge Information Additional Instructions: Patient pronounced at 1332 hrs.
--- NOTE | 2021-10-26 13:54 | PCM.SN.2 ---
- Free Text/Narrative Note: Anesthesia Start: 1324 Anesthesia Stop: 1334 Called to ED for code blue, patient arrived in ED with CPR in progress and Hernandez airway in place. Hernandez removed and ETT placed using glidescope 3. Successful placement on first attempt verified with bbs, visualization at level of cords with glidescope. secured in place at 20 at teeth. CPR continued during intubation.
== END 2021-10-26 15:00 | disposition expired ==
LOC: MW.ED 13:24
DX: I46.9 Cardiac arrest, cause unspecified (principal); Z88.0 Allergy status to penicillin; Z88.5 Allergy status to narcotic agent; Z88.8 Allergy status to other drugs, medicaments and biological substances
CPT/HCPCS: 31500; 92950; 99285; J0171